=== PATIENT | male | born 1950 | race Hispanic/Latino ===

== ENCOUNTER 2019-06-11 12:15 | Emergency (ER) | payer BC, MEDICARE ==
[2019-06-11] MEDS ORDERED: Ketorolac Tromethamine 30 MG/ML VIAL ONE (12:35)
[2019-06-11 12:50] LABS: #Basophils 0.1 thou/uL (0.0-0.2); #Eosinphils 0.3 thou/uL (0.0-0.7); #Lymphocytes 2.6 thou/uL (1.20-3.40); #Monocytes 0.5 thou/uL (0.11-0.59); #Neutrophils 3.3 thou/uL (1.40-6.50); %Basophils 1.9 % (0.0-1.0); %Eosinophils 4.2 % (0.0-10.0); %Lymphocytes 37.8 % (21.0-51.0); %Monocytes 7.3 % (0.0-10.0); Mean Corpuscular HGB CONC 33.8 g/dL (32.0-36.0); Mean Corpuscular Hemoglobin 31.5 pg (27.0-31.0); Mean Corpuscular Volume 93.3 fL (78.0-98.0); Mean Platelet Volume 8.2 fL (7.4-10.4); Platelet Count 190 thou/uL (130-400); RBC Distribution Width 12.4 % (11.5-14.5); Red Blood Cell (RBC) Count 4.45 mill/uL (4.70-6.10); White Blood Cell (WBC) Count 6.8 thou/uL (4.8-10.8)
[2019-06-11 13:05] LABS: ALT (SGPT) 25 U/L (8-55); AST (SGOT) 20 U/L (5-34); Alkaline Phosphatase 73 U/L (40-110); Anion Gap 13 mmol/L (10-20); BUN (Urea Nitrogen) 12 mg/dL (8.4-25.7); Bilirubin, Total 0.3 mg/dL (0.2-1.2); CK (CPK) 147 U/L (30-200); Calc. Creatinine Clearance 0 mL/min (70-130); Calcium 8.9 mg/dL (7.8-10.44); Carbon Dioxide 23 mmol/L (23-31); Chloride 109 mmol/L (98-107); Estimated GFR-MDRD 85; Globulin 3.1 g/dL (2.4-3.5); Glucose 176 mg/dL (80-115); Protein, Total 7.1 g/dL (5.8-8.1); Sodium 141 mmol/L (136-145)
--- NOTE | 2019-06-11 18:14 | CT ---
CT BRAIN WITHOUT CONTRAST: 06/11/2019 HISTORY/TECHNIQUE: A noncontrast study was done to investigate left facial and upper extremity tingling. FINDINGS: The ventricles are normal in size for age. There is no ventricular shift. No intracranial bleeding, m ass or sign of acute stroke is found. There is minimal hypodensity in the deep white matter and the g ray/white distinction is good. The calvarium appears normal. The visible paranasal sinuses and mastoi d air cells are clear. IMPRESSION: No acute intracranial findings. POS: HOME
--- NOTE | 2019-06-11 18:30 | CT ---
CT CERVICAL SPINE: 06/11/2019 HISTORY/TECHNIQUE: A spiral CT of the cervical spine is done using axial slices, followed by coronal and sagittal recons tructions. FINDINGS: No fracture, dislocation or soft tissue swelling is seen. The C1 to dens distance is normal. There is slight disk space narrowing at C5-C6 and at C6-C7. The C-spine is straight, which may be due to musc le spasm. Calcification is noted in the ligamentum nuchae, at about the C5 level. Findings by level follow: C1-C2: No acute findings. C2-C3: No acute findings. C3-C4: Mild right foraminal narrowing due to osteophytes. C4-C5: Mild left foraminal narrowing due to osteophytes. C5-C6: Mild to moderate left foraminal narrowing. C6-C7: Moderate bilateral foraminal narrowing due to osteophytes. Some of the osteophytes protrude po steriorly and impinge upon the thecal sac but the AP diameter of the spinal canal at this level is ab out 10 mm. C7-T1: No acute findings. T1-T2: Slight right foraminal narrowing due to osteophytes. T2-T3: No acute findings. The lung apices are clear. Neck soft tissues show no findings of concern. IMPRESSION: Multilevel cervical spondylosis, consisting of osteophytes, which narrow the foramen at various level s. Those on the left seem slightly more significant than the right, particularly from about C4 throug h C7. [id number] MRI would be most useful in helping determine the possibility of any neural impi ngement. POS: HOME
== END 2019-06-11 13:26 | disposition home or self-care (01) ==
LOC: BURERS 12:15
DX: M54.12 Radiculopathy, cervical region (principal); E11.9 Type 2 diabetes mellitus without complications; F17.210 Nicotine dependence, cigarettes, uncomplicated
CPT/HCPCS: 36415; 70450; 72125; 80053; 82550; 83735; 85025; 96372; J1885

== ENCOUNTER 2019-07-27 12:45 | Emergency (ER) | payer MEDICARE ==
[2019-07-27] MEDS ORDERED: Adacel (T-DAP) 0.5 ML SYRINGE ONE (13:06)
[2019-07-27] MEDS ORDERED: Sulfameth/Trimethoprim DS 800-160mg TAB ONE (13:06)
[2019-07-27] MEDS ORDERED: Bacitracin 1 PK ONE (13:11)
== END 2019-07-27 13:24 | disposition home or self-care (01) ==
LOC: BURERS 12:45
DX: S61.211A Laceration without foreign body of left index finger without damage to nail, initial encounter (principal); E11.9 Type 2 diabetes mellitus without complications; F17.210 Nicotine dependence, cigarettes, uncomplicated; W45.8XXA Other foreign body or object entering through skin, initial encounter
CPT/HCPCS: 90471; 90715; Q4049